=== PATIENT | male | born 1995 | race African-American/Black ===

== ENCOUNTER 2018-08-17 05:05 | Emergency (ER) | payer BC ==
[2018-08-17] MEDS ORDERED: AMOXICILLIN TRIHYDRATE 500 MG CAPSULE PO ONE (06:43)
[2018-08-17] MEDS ORDERED: IBUPROFEN 800 MG TABLET PO ONE (06:44)
--- NOTE | 2018-08-17 06:49 | ER Document Report ---
ED General - General Chief Complaint: Toothache Stated Complaint: TOOTH PAIN Time Seen by Provider: 08/17/18 06:17 Notes: 22-year-old male presents complaining of right lower jaw pain. He states that he has had issues with his teeth for quite a long time. He denies any fever chills denies problems swallowing. Denies any drooling. Denies shortness of breath. Rates the pain is severe is worse with chewing or any cold beverages. He denies any other symptoms no chest pain or shortness of breath no abdominal pain. TRAVEL OUTSIDE OF THE [place] IN LAST 30 DAYS: No Past Medical History - Social History Smoking Status: Unknown if Ever Smoked Family History: None Review of Systems - Review of Systems Constitutional: denies: Chills, Fever Respiratory: denies: Short of breath Gastrointestinal: denies: Nausea, Vomiting Musculoskeletal: denies: Back pain Hematologic/Lymphatic: denies: Easy bruising -: Yes All other systems reviewed and negative Physical Exam - Vital signs Vitals: Temp Pulse Resp BP Pulse Ox 98.4 F 58 L 16 127/100 H 0 L 08/17/18 05:13 08/17/18 05:13 08/17/18 05:13 08/17/18 05:13 08/17/18 05:13 - General Notes: GENERAL_APPEARANCE: well_nourished, alert, cooperative, no_acute_distress, no_ obvious_discomfort. VITALS: reviewed, see vital signs table. HEAD: no_swelling\tenderness on the head. EYES: PERRL, EOMI, conjunctiva_clear. NOSE: no_nasal_discharge. MOUTH: (-)decreased moisture. Overall very poor dentition. There is multiple dental caries in the right lower jaw on the right lateral molars. No obvious signs of dental abscesses no redness no fluctuance no lymphadenopathy. THROAT: no_throat_inflammation, no_airway_obstruction. no_lymphadenopathy NECK: supple, no_neck_tenderness, (-)thyromegaly. MENTAL_STATUS: speech_clear, oriented_X_3, normal_affect, responds_ appropriately to questions. Course - Re-evaluation Re-evalutation: 08/17/18 06:47 Patient presents with a toothache. Patient has many dental caries in the right lower jaw no obvious signs of dental abscess will place the patient on ibuprofen and amoxicillin. While the patient follow-up with dentistry he is not from the area he is only in the area working. I advised him to see a dentist to get these teeth filled. There is no significant dental abscess no drooling or stridor. - Vital Signs Vital signs: Temp Pulse Resp BP Pulse Ox 98.4 F 58 L 16 127/100 H 0 L 08/17/18 05:13 08/17/18 05:13 08/17/18 05:13 08/17/18 05:13 08/17/18 05:13 Discharge - Discharge Clinical Impression: Dental caries, Toothache Condition: Good Disposition: HOME, SELF-CARE Instructions: Toothache ([facility]) Prescriptions: Penicillin V Potassium [Penicillin Vk 500 mg Tablet] 500 mg PO QID #40 tablet
[2018-08-17 07:07] VITALS: BP 133/75
== END 2018-08-17 07:06 | disposition home or self-care (01) ==
LOC: ER 05:05
DX: K02.9 Dental caries, unspecified (principal); K08.89 Other specified disorders of teeth and supporting structures
CPT/HCPCS: 99282